=== PATIENT | male | born 1960 | race Hispanic/Latino ===

== ENCOUNTER 2020-07-24 12:04 | Emergency (ER) | payer BC, OTHER ==
[2020-07-24] MEDS ORDERED: SODIUM CHLORIDE 0.9% (FLUSH) 10 ML SYG IV PRN (12:09)
[2020-07-24] MEDS ORDERED: ASPIRIN TABLET 325 MG TAB PO ONE ×2 (12:09→12:53)
--- NOTE | 2020-07-24 12:12 | ED.PDOC ---
History of Present Illness - General Time Seen by Provider: 07/24/20 12:05 Source: RN notes reviewed, Vital Signs reviewed, family Exam Limitations: clinical condition - History of Present Illness Initial Comments: 59 yo RHD M presents with with right arm numbness and weakness. Last known normal yesterday. Patient appears confused. Does not answer appropriately, Has difficulty following commands. No recent injury or fall. Complains of entire arm numbness. Per was speaking normal this morning, then around 8 AM started becoming confused, would not answer appropriately. Allergies/Adverse Reactions: Allergies NO KNOWN ALLERGY Allergy (Verified 07/24/20 13:03) Home Medications: Ambulatory Orders Naproxen Sodium [Anaprox Ds] 550 mg PO BID #30 tab 01/02/14 traMADol 37.5MG/APAP 325MG [Ultracet] 1 ea PO Q6H PRN #20 tab 01/03/14 Review of Systems - Review of Systems Constitutional: Denies: chills, fever EENTM: Denies: blurred vision Respiratory: Denies: cough, orthopnea, short of breath Cardiology: Denies: chest pain, palpitations Gastrointestinal/Abdominal: Denies: abdominal pain, vomiting Musculoskeletal: Denies: back pain, joint pain, muscle pain Skin: Denies: rash Neurological: States: see HPI Endocrine: Denies: unexplained weight loss Hematologic/Lymphatic: Denies: easy bleeding, easy bruising Past Medical History (General) - Patient Medical History Hx Seizures: No Hx Stroke: No Hx Dementia: No Hx Asthma: No Hx of COPD: No Hx Cardiac Disorders: No Hx Congestive Heart Failure: No Hx Pacemaker: No Hx Hypertension: Yes Hx Thyroid Disease: No Hx Diabetes: No Hx Gastroesophageal Reflux: No Hx Renal Disease: No Hx Cancer: No Hx of HIV: No Hx Hepatitis B: No - Vaccination History Hx Tetanus, Diphtheria Vaccination: Yes - not utd Family Medical History - Family History Grandparents Family History: Unknown Hx Family;Other: states grandparents of old age. Physical Exam - Physical Exam General Appearance: Alert, Comfortable, No apparent distress, Well Developed, Well Groomed, Well Hydrated, Well Nourished Eye Exam: bilateral normal ENT Exam: normal ENT inspection, hearing grossly normal, TMs normal Neck: non-tender, full range of motion, supple, normal inspection, trachea midline Respiratory: chest non-tender, lungs clear, normal breath sounds, no respiratory distress, no accessory muscle use Cardiovascular/Chest: normal peripheral pulses, regular rate, rhythm, no edema, no gallop, no JVD, no murmur Peripheral Pulses: radial,right: 2+, radial,left: 2+ Gastrointestinal/Abdominal: normal bowel sounds, soft Back Exam: normal inspection Extremities Exam: non-tender, no evidence of injury, no edema 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 , weak motor strength RUE Skin Exam: normal color, warm/dry Progress - Progress Progress: 07/24/20 13:02 Diffcut to preform NIH score, at first would just open his mouth when asking questions, after about 20 minutes, patient could answer age, month, name, he could repeat simple sentences, but not complex ones. He would move eyes in all direction spontaneously but when ask to follow finger he was unable to follow instructions. He does have a pronator drift and decrease strength in the right. He was given 325 mg aspirin. 07/24/20 14:39 Delay in dispo no transport available, unable to fly due to weather. repeat evaluation prior to departure, NIH 2. 07/24/20 17:13 - EKG/XRAY/CT EKG: Sinus Comments: no acute ischemia, normal intervals XRAY: chest - no acute pathology. Stroke Information - Onset of Symptoms Symptoms of Stroke: Aphasia, Weakness of limb, Numbness Stroke Onset of Symptoms Date: 07/24/20 Stroke Onset of Symptoms Time: 08:00 - Contraindications t-PA Contraindication: Drug Tx Not Indicated - over 4 hours since last normal. Departure - Departure Clinical Impression: CVA (cerebral vascular accident) Qualifiers: CVA mechanism: unspecified Qualified Code(s): I63.9 - Cerebral infarction, unspecified Disposition: Transfer to Hospital Departure Forms: ED Discharge - Pt. Copy, Patient Portal Self Enrollment Referrals: Juan Vidal MD [Primary Care Provider] - 1-2 Weeks Home Medications: Ambulatory Orders Naproxen Sodium [Anaprox Ds] 550 mg PO BID #30 tab 01/02/14 traMADol 37.5MG/APAP 325MG [Ultracet] 1 ea PO Q6H PRN #20 tab 01/03/14 Transfer to Outside Facility - Transfer Information Decision to Transfer Date: 07/24/20 Decision to Transfer Time: 12:20 Reason for Transfer: specialized care not available Accepting Facility: [facility]
--- NOTE | 2020-07-24 12:50 | CT ---
Sex: Male. : 1960. TECHNIQUE: Axial scans of the brain without contrast including multiplanar computer-generated reformations. Total Dose Length Product: 1074. This exam was performed according to our departmental dose-optimization program, which includes automated exposure control, adjustment of the mA and/or kV according to patient size and/or use of iterative reconstruction technique. Comparison studies: None. Clinical history: right arm weakness. Scalp: Unremarkable. Intracranial mass: None. Intracranial density: *Hypoattenuating density is seen in the left hemisphere cortex involving frontal, parietal and occipital lobes, consistent with acute infarct. Speculatively carotid origin. Noting bilateral carotid artery atheromatous plaque. CTA or MRA may be helpful for further evaluation as indicated. *There is mild sulci effacement. There is no other mass effect. *There is no hyperattenuating density to indicate hemorrhage or hemorrhagic conversion at this time. Intracranial hemorrhage: No intracranial hemorrhage. Extra-axial fluid collection: None. Midline shift: None Ventricles, subarachnoid spaces and sulci: Otherwise unremarkable. Calvarium: Unremarkable. Orbits: Unremarkable. Paranasal sinuses: Aerated. Nasal septum is deviated. IMPRESSION: 1. Acute left CVA. Verbal communication pending. 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
[2020-07-24] MEDS ORDERED: ASPIRIN TABLET 325 MG TAB ONE (12:52)
--- NOTE | 2020-07-24 13:18 | RAD ---
EXAM: Chest 1 View HISTORY: hypertension COMPARISON: None. TECHNIQUE: Chest 1 View AP FINDINGS: Trachea midline. Heart size and pulmonary vessels within normal limits. Lungs clear with no evidence of mass, consolidation, or significant pulmonary edema. No significant pleural effusion or pneumothorax. Bones unremarkable. IMPRESSION: Unremarkable chest radiograph. 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
--- NOTE | 2020-07-24 14:17 | CT ---
PROCEDURE: CTA Head (accession [id number]), CTA Neck (accession [id number]) CLINICAL HISTORY: 59 years Male stroke COMPARISON: None. TECHNIQUE: Contiguous axial images were obtained through the head and neck during the infusion of IV contrast. Reformatted images obtained. MIP reformatted images obtained. This exam was performed according to our department optimization program which includes automated exposure control, adjustment of the mA and/or kv according to patient size and/or use of iterative reconstruction technique. FINDINGS: Head: Internal carotid arteries: The distal internal carotid arteries are patent. There is multifocal atherosclerotic plaque within the supraclinoid segments. There is mild, estimated 30% narrowing of the LEFT supraclinoid ICA. Anterior cerebral arteries: No significant narrowing or occlusion. Middle cerebral arteries: No significant narrowing or occlusion. Posterior circulation: The distal vertebral artery segments are normal caliber. Normal caliber basilar artery. The posterior cerebral arteries and superior cerebellar arteries are patent. Particular, the LEFT posterior cerebral artery is patent as visualized. Peripheral area of ischemia is noted within the LEFT posterior parietal region. Aneurysm or arteriovenous malformation: None. The dural venous sinuses are patent. Other: Exam is not optimized for brain parenchyma evaluation. Allowing for this, there is no abnormal enhancing brain lesion identified. Neck: Below average bolus density, mildly limits this exam. Aorta: Visualized portions of the thoracic aorta are normal caliber. No thoracic aortic dissection or aneurysm. Right carotid: The brachiocephalic artery and common carotid artery are normal caliber. There is mild smooth circumferential plaque along the distal common carotid artery and proximal ICA. There is mild calcified eccentric plaque within the proximal ICA. No stenosis. Left carotid:The common carotid artery is normal in caliber. There is a 1.5 cm stenotic segment as the origin of the internal carotid artery. Minimal luminal diameter is less than 2 mm. Estimated 80 % stenosis. The mid to distal ICA is normal caliber. Vertebral arteries: The subclavian arteries are patent bilaterally. Mildly limited visualization of the vertebral arteries due to greater than usual amount of artifact. There are both patent. No stenosis is identified. Nonangiographic findings: No adenopathy or mass within the neck. IMPRESSION: 1. There is 80% stenosis of the LEFT proximal internal carotid artery. 2. No significant stenosis of the RIGHT carotid artery or of the vertebral arteries. 3. No significant arterial stenosis within the head. There is mild narrowing of the supraclinoid portion of the LEFT internal carotid artery. Electronically signed by: Thee Minaya MD 07/24/2020 2:[address] [facility]
[2020-07-24 18:13] VITALS: BP 148/79; TEMP 97.6; O2SAT 97
== END 2020-07-24 17:00 | disposition short-term general hospital (02) ==
LOC: ER 12:04
DX: I63.9 Cerebral infarction, unspecified (principal); R47.01 Aphasia; G81.91 Hemiplegia, unspecified affecting right dominant side; I10 Essential (primary) hypertension; Z20.822 Contact with and (suspected) exposure to COVID-19

== ENCOUNTER → 2020-08-10 | Outpatient (CLI) | payer OTHER | LOC: GMAM 12:40 | PROVIDERS: ATTEND Family Medicine | DX: Z12.5 Encounter for screening for malignant neoplasm of prostate (principal) ==